=== PATIENT | female | born 2000 | race Caucasian/White ===

== ENCOUNTER 2021-04-13 12:44 | Emergency (ER) | payer OTHER ==
[2021-04-13 13:15] VITALS: RESP 18; TEMP 98.5
[2021-04-13 14:17] LABS: Appearance,Urine Cloudy (Clear); Bacteria,Urine Rare /hpf; Bilirubin,Urine Negative (Negative); Blood,Urine Large (Negative); Color,Urine Yellow; Glucose,Urine (UA) Negative (Negative); Ketones,Urine Negative (Negative); Leukocyte Esterase,Urine Large (Negative); Mucus,Urine Rare /hpf; Nitrite,Urine Negative (Negative); PH, Urine 6.5 (5.0-8.0); Protein,Urine Negative (Negative); RBC,Urine 58 /hpf (0-5); Specific Gravity,Urine 1.019 (1.001-1.035); Squamous Epithelial Cell,Urine 4 /hpf (0-4); Urobilinogen,Urine <2.0 mg/dL (<2.0); WBC,Urine 8 /hpf (0-5)
[2021-04-13] MEDS ORDERED: DEXAMETHASONE SOD PHOSPHATE 10 MG/ML 1 ML VIAL IM STA (14:32)
[2021-04-13] MEDS ORDERED: ONDANSETRON 4 MG/2 ML VIAL IVP STA (14:33)
[2021-04-13] MEDS ORDERED: SODIUM CHLORIDE 0.9% 1,000 ML IV STA (14:33)
[2021-04-13 15:06] LABS: Basophils % (A) 1 %; Eosinophils # (A) 0.1 k/uL (0-0.7); Eosinophils % (A) 1 %; HCT 44.2 % (34.0-46.0); Lymphocytes # (A) 1.5 k/uL (1.0-4.8); Lymphocytes % (A) 17 %; MCH 29.9 pg (25.0-35.0); Mean Platelet Volume 7.2; Monocytes # (A) 0.3 k/uL (0-1.0); Monocytes % (A) 3 %; Neutrophils # (A) 7.1 k/uL (1.3-7.7); Neutrophils % (A) 78 %; Platelet Count 220 k/uL (150-450); RBC 5.02 m/uL (3.80-5.40); RDW 13.3 % (11.5-15.5); WBC 9.1 k/uL (4.0-11.0)
[2021-04-13 15:20] LABS: ALT 48 U/L (4-34); AST 34 U/L (14-36); African American GFR (CKD) >90 (>60 ml/min/1.73 sqM); Albumin 4.7 g/dL (3.5-5.0); Alkaline Phosphatase 66 U/L (38-126); Amylase 44 U/L (30-110); Anion Gap 10 mmol/L; Blood Urea Nitrogen 7 mg/dL (7-17); Carbon Dioxide 24 mmol/L (22-30); Chloride 105 mmol/L (98-107); Glucose 86 mg/dL (74-99); Lipase 58 U/L (23-300); Non-African American GFR(CKD) >90 (>60 ml/min/1.73 sqM); Potassium 3.8 mmol/L (3.5-5.1); Sodium 139 mmol/L (137-145); Total Bilirubin 0.6 mg/dL (0.2-1.3); Total Protein 7.6 g/dL (6.3-8.2)
--- NOTE | 2021-04-13 15:23 | XR ---
EXAMINATION TYPE: XR KUB DATE OF EXAM: 04/13/2021 COMPARISON: NONE HISTORY: Abdominal pain TECHNIQUE: 2 views FINDINGS: Bowel gas pattern is normal. There is no sign of intestinal obstruction or pneumoperitoneum . Fecal pattern is normal. Lung bases are clear. IMPRESSION: Nonacute abdomen.
[2021-04-13] MEDS ORDERED: cefTRIAXone IN SWFI 1,000 MG/10 ML SYRINGE IVP STA (15:56)
--- NOTE | 2021-04-13 16:09 | CT ---
EXAMINATION TYPE: CT abdomen pelvis w con DATE OF EXAM: 04/13/2021 COMPARISON: None HISTORY: RLQ pain and vomiting CT DLP: 1331.7 mGycm Automated exposure control for dose reduction was used. CONTRAST: Performed with IV Contrast, patient injected with 100 mL of Isovue 300. Images obtained from the diaphragm to the floor the pelvis with IV contrast. Lung bases are clear. There is no pleural effusion. Heart size is normal. There is no pericardial eff usion. Liver spleen stomach pancreas gallbladder appear intact. The bile ducts are not dilated. There is no adrenal mass. Kidneys have normal size and contour. There is normal contrast opacificatio n of the kidneys. There is no hydronephrosis. There is no retroperitoneal adenopathy. Bladder distend s smoothly. There is no inguinal hernia. Uterus is anteverted. Lumbar vertebra have normal alignment. There is L5 spondylolysis without significant spondylolisthesis. There is no compression fracture. B kenny pelvis is intact. Hip joints are intact. There is no evidence of pelvic mass. Appendix is medial and appears normal. There is no mesenteric edema. There is no ascites or free air. There is no evidence of a bowel obstru ction. IMPRESSION: Negative CT scan abdomen and pelvis. Normal appendix.
--- NOTE | 2021-04-13 17:00 | ED ---
Nausea/Vomiting/Diarrhea HPI - General Source: patient, RN notes reviewed Mode of arrival: ambulatory Limitations: no limitations <Khai Garcia - Last Filed: 04/13/21 16:52> <Lidya Lobo - Last Filed: 04/18/21 01:43> - General Chief complaint: Nausea/Vomiting/Diarrhea Stated complaint: stomach pain, vomitting Time Seen by Provider: 04/13/21 14:24 - History of Present Illness Initial comments: Patient is a 20-year-old female that presents to the emergency department with nausea vomiting abdominal pain for the past several months. She notes this is been ongoing with over these. She denied any aggravating or alleviating factors at this time. She notes she does still have her gallbladder and appendix. She was otherwise well-appearing. She denied any . She denied chest pain shortness of breath headache diarrhea constipation fever fatigue chills. (Khai Garcia) - Related Data Home Medications Medication Instructions Recorded Confirmed Bismuth Subsalicylate 262 mg PO ONCE PRN 04/13/21 04/13/21 [Pepto-Bismol] Previous Rx's Medication Instructions Recorded Cephalexin [Keflex] 500 mg PO Q6HR #40 cap 04/13/21 Allergies Allergy/AdvReac Type Severity Reaction Status Date / Time No Known Allergies Allergy Verified 04/13/21 16:15 Review of Systems ROS Other: All systems not noted in ROS Statement are negative. <Khai Garcia - Last Filed: 04/13/21 16:52> ROS Other: All systems not noted in ROS Statement are negative. <Lidya Lobo - Last Filed: 04/18/21 01:43> ROS Statement: Those systems with pertinent positive or pertinent negative responses have been documented in the HPI. Past Medical History Past Medical History: No Reported History History of Any Multi-Drug Resistant Organisms: None Reported Past Surgical History: Bladder Surgery Additional Past Surgical History / Comment(s): bladder surgery as a kid Past Psychological History: Anxiety Smoking Status: Vaper Past Alcohol Use History: None Reported Past Drug Use History: Marijuana <Khai Garcia - Last Filed: 04/13/21 16:52> General Exam Limitations: no limitations General appearance: alert, in no apparent distress, obese Head exam: Present: atraumatic, normocephalic, normal inspection Eye exam: Present: normal appearance, PERRL, EOMI. Absent: scleral icterus, conjunctival injection, periorbital swelling ENT exam: Present: normal exam, mucous membranes moist Neck exam: Present: normal inspection Respiratory exam: Present: normal lung sounds bilaterally. Absent: respiratory distress, wheezes, rales, rhonchi, stridor Cardiovascular Exam: Present: regular rate, normal rhythm, normal heart sounds. Absent: systolic murmur, diastolic murmur, rubs, gallop, clicks GI/Abdominal exam: Present: soft, tenderness (Generalized throughout), normal bowel sounds. Absent: distended, guarding, rebound, rigid Extremities exam: Present: normal inspection, full ROM, normal capillary refill. Absent: tenderness, pedal edema, joint swelling, calf tenderness Neurological exam: Present: alert, oriented X3 Psychiatric exam: Present: normal affect, normal mood Skin exam: Present: warm, dry, intact, normal color. Absent: rash <Khai Garcia - Last Filed: 04/13/21 16:52> Course Vital Signs 04/13/21 04/13/21 04/13/21 13:10 15:24 17:13 Temperature 98.5 F 98.5 F Pulse Rate 77 63 69 Respiratory 18 18 18 Rate Blood Pressure 169/93 129/85 123/88 O2 Sat by Pulse 97 100 99 Oximetry Medical Decision Making - Lab Data Result diagrams: 04/13/21 14:44 04/13/21 14:44 <Khai Garcia - Last Filed: 04/13/21 16:52> - Lab Data Result diagrams: 04/13/21 14:44 04/13/21 14:44 <Lidya Lobo - Last Filed: 04/18/21 01:43> - Medical Decision Making 20 oh female complaining of nausea and vomiting with no pain for the past several months. Labs, KUB, 1 L normal saline, 4 g of Zofran ordered. Labs unremarkable. Urinalysis shows 11 white blood cells, 1 g Rocephin ordered. Antibiotics sent to pharmacy. KUB shows nonacute abdomen. Computed tomography scan ordered due to continuing discomfort. Computed tomography scan negative for any acute abdominal process. Results discussed with patient and she is, discharge. Primary care and GI specialist as needed. Case discussed with Dr. Lobo, patient discharge home. (Khai Garcia) I was available for consultation in the emergency department. The history and physical exam were done by the midlevel provider. I was consulted for this patients care. I reviewed the case with the midlevel provider and based on their presentation of the patient, I agree with the assessment, medical decision making and plan of care as documented. Chart was dictated using [email or web address] dictation software. Attempts were made to correct any dictation errors however some typographical errors may persist. (Lidya Lobo) - Lab Data Lab Results 04/13/21 04/13/21 04/13/21 Range/Units 13:41 13:41 14:44 WBC 9.1 (4.0-11.0) k/uL RBC 5.02 (3.80-5.40) m/uL Hgb 15.0 (11.4-16.0) gm/dL Hct 44.2 (34.0-46.0) % MCV 88.0 (80.0-100.0) fL MCH 29.9 (25.0-35.0) pg MCHC 34.0 (31.0-37.0) g/dL RDW 13.3 (11.5-15.5) % Plt Count 220 (150-450) k/uL MPV 7.2 Neutrophils % 78 % Lymphocytes % 17 % Monocytes % 3 % Eosinophils % 1 % Basophils % 1 % Neutrophils # 7.1 (1.3-7.7) k/uL Lymphocytes # 1.5 (1.0-4.8) k/uL Monocytes # 0.3 (0-1.0) k/uL Eosinophils # 0.1 (0-0.7) k/uL Basophils # 0.0 (0-0.2) k/uL Sodium (137-145) mmol/L Potassium (3.5-5.1) mmol/L Chloride (98-107) mmol/L Carbon Dioxide (22-30) mmol/L Anion Gap mmol/L BUN (7-17) mg/dL Creatinine (0.52-1.04) mg/dL Est GFR (CKD-EPI)AfAm (>60 ml/min/1.73 sqM) Est GFR (CKD-EPI)NonAf (>60 ml/min/1.73 sqM) Glucose (74-99) mg/dL Calcium (8.4-10.2) mg/dL Total Bilirubin (0.2-1.3) mg/dL AST (14-36) U/L ALT (4-34) U/L Alkaline Phosphatase (38-126) U/L Total Protein (6.3-8.2) g/dL Albumin (3.5-5.0) g/dL Amylase (30-110) U/L Lipase (23-300) U/L Urine Color Yellow Urine Appearance Cloudy H (Clear) Urine pH 6.5 (5.0-8.0) Ur Specific [place] 1.019 (1.001-1.035) Urine Protein Negative (Negative) Urine Glucose (UA) Negative (Negative) Urine Ketones Negative (Negative) Urine Blood Large H (Negative) Urine Nitrite Negative (Negative) Urine Bilirubin Negative (Negative) Urine Urobilinogen <2.0 (<2.0) mg/dL Ur Leukocyte Esterase Large H (Negative) Urine RBC 58 H (0-5) /hpf Urine WBC 8 H (0-5) /hpf Ur Squamous Epith Cells 4 (0-4) /hpf Urine Bacteria Rare H (None) /hpf Urine Mucus Rare H (None) /hpf Urine HCG, Qual Not Detected (Not Detectd) 04/13/21 Range/Units 14:44 WBC (4.0-11.0) k/uL RBC (3.80-5.40) m/uL Hgb (11.4-16.0) gm/dL Hct (34.0-46.0) % MCV (80.0-100.0) fL MCH (25.0-35.0) pg MCHC (31.0-37.0) g/dL RDW (11.5-15.5) % Plt Count (150-450) k/uL MPV Neutrophils % % Lymphocytes % % Monocytes % % Eosinophils % % Basophils % % Neutrophils # (1.3-7.7) k/uL Lymphocytes # (1.0-4.8) k/uL Monocytes # (0-1.0) k/uL Eosinophils # (0-0.7) k/uL Basophils # (0-0.2) k/uL Sodium 139 (137-145) mmol/L Potassium 3.8 (3.5-5.1) mmol/L Chloride 105 (98-107) mmol/L Carbon Dioxide 24 (22-30) mmol/L Anion Gap 10 mmol/L BUN 7 (7-17) mg/dL Creatinine 0.58 (0.52-1.04) mg/dL Est GFR (CKD-EPI)AfAm >90 (>60 ml/min/1.73 sqM) Est GFR (CKD-EPI)NonAf >90 (>60 ml/min/1.73 sqM) Glucose 86 (74-99) mg/dL Calcium 10.0 (8.4-10.2) mg/dL Total Bilirubin 0.6 (0.2-1.3) mg/dL AST 34 (14-36) U/L ALT 48 H (4-34) U/L Alkaline Phosphatase 66 (38-126) U/L Total Protein 7.6 (6.3-8.2) g/dL Albumin 4.7 (3.5-5.0) g/dL Amylase 44 (30-110) U/L Lipase 58 (23-300) U/L Urine Color Urine Appearance (Clear) Urine pH (5.0-8.0) Ur Specific [place] (1.001-1.035) Urine Protein (Negative) Urine Glucose (UA) (Negative) Urine Ketones (Negative) Urine Blood (Negative) Urine Nitrite (Negative) Urine Bilirubin (Negative) Urine Urobilinogen (<2.0) mg/dL Ur Leukocyte Esterase (Negative) Urine RBC (0-5) /hpf Urine WBC (0-5) /hpf Ur Squamous Epith Cells (0-4) /hpf Urine Bacteria (None) /hpf Urine Mucus (None) /hpf Urine HCG, Qual (Not Detectd) Disposition Is patient prescribed a controlled substance at d/c from ED?: No Time of Disposition: 16:59 <Khai Garcia - Last Filed: 04/13/21 16:52> <Lidya Lobo - Last Filed: 04/18/21 01:43> Clinical Impression: Abdominal pain, Urinary tract infection Disposition: HOME SELF-CARE Condition: Stable Instructions (If sedation given, give patient instructions): Abdominal Pain (ED) Additional Instructions: Please return to the Emergency Department if symptoms worsen or any other concerns. Follow-up with primary care 1-2 days. Take antibiotics as prescribed. Prescriptions: Cephalexin [Keflex] 500 mg PO Q6HR #40 cap Referrals: None,Stated [Primary Care Provider] - 1-2 days Lesvia Ford MD [STAFF PHYSICIAN] - 1-2 days
[2021-04-13 17:14] VITALS: BP 123/88; PULSE 69
== END 2021-04-13 17:14 | disposition home or self-care (01) ==
LOC: EC 12:44
DX: N39.0 Urinary tract infection, site not specified (principal); F41.9 Anxiety disorder, unspecified; F17.290 Nicotine dependence, other tobacco product, uncomplicated; F12.90 Cannabis use, unspecified, uncomplicated
CPT/HCPCS: 99284; 96374; 96375; 36415; 80053; 82150; 83690; 85025; 81001; 81025; 74018; 74177; J2405; J0696; Q9967

== ENCOUNTER 2023-01-13 17:29 | Emergency (ER) | payer OTHER ==
[2023-01-13] MEDS ORDERED: SODIUM CHLORIDE 0.9% 500 ML 500 ML IV STA (17:54)
[2023-01-13] MEDS ORDERED: LORazepam 1 MG TAB PO STA (17:54)
--- NOTE | 2023-01-13 17:58 | ED ---
General Adult HPI - General Chief complaint: Dizziness Stated complaint: Near-syncope Time Seen by Provider: 01/13/23 17:46 Source: patient, family, RN notes reviewed Mode of arrival: ambulatory Limitations: no limitations - History of Present Illness Initial comments: Patient is a pleasant 22-year-old female presenting to the emergency department for near syncopal episode. Patient has not been feeling great all day. Patient does admit to drinking a monster energy drink today which she has not had any long time. Patient was at work and felt lightheaded. Patient did not pass out. Patient states symptoms have improved and near resolved. Patient questions if she is feeling anxious. Patient states she does have a history of chronic anxiety. - Related Data Home Medications Medication Instructions Recorded Confirmed No Known Home Medications 01/13/23 01/13/23 Allergies Allergy/AdvReac Type Severity Reaction Status Date / Time No Known Allergies Allergy Verified 04/13/21 16:15 Review of Systems ROS Statement: Those systems with pertinent positive or pertinent negative responses have been documented in the HPI. ROS Other: All systems not noted in ROS Statement are negative. Constitutional: Denies: fever Eyes: Denies: eye pain ENT: Denies: ear pain Respiratory: Reports: dyspnea (Patient does feel a little bit short of breath however believes this is from her anxiety as she has had this previously also with her anxiety) Cardiovascular: Denies: chest pain Gastrointestinal: Denies: abdominal pain Genitourinary: Denies: dysuria Past Medical History Past Medical History: No Reported History History of Any Multi-Drug Resistant Organisms: None Reported Past Surgical History: Bladder Surgery Additional Past Surgical History / Comment(s): bladder surgery as a kid Past Psychological History: Anxiety Smoking Status: Vaper Past Alcohol Use History: None Reported Past Drug Use History: Marijuana General Exam Limitations: no limitations General appearance: alert, in no apparent distress Head exam: Present: normocephalic Eye exam: Present: normal appearance, PERRL, EOMI ENT exam: Present: normal oropharynx Neck exam: Present: normal inspection Respiratory exam: Present: normal lung sounds bilaterally Cardiovascular Exam: Present: regular rate, normal rhythm Expanded Peripheral pulses: 2+: Radial (R), Radial (L), Posterior Tibialis (R), Posterior Tibialis (L) GI/Abdominal exam: Present: soft. Absent: tenderness Extremities exam: Present: normal inspection. Absent: pedal edema, calf tenderness Neurological exam: Present: alert, oriented X3, CN II-XII intact. Absent: motor sensory deficit Expanded Neurological exam: Present: protecting the airway Speech: Present: fluid speech Cranial nerves: EOM's Intact: Normal Motor strength exam: RUE: 5, LUE: 5, RLE: 5, LLE: 5 Eye Response: (4) open spontaneously Motor Response: (6) obeys commands Verbal Response: (5) oriented Psychiatric exam: Present: normal affect, normal mood Skin exam: Present: normal color Course Vital Signs 01/13/23 01/13/23 01/13/23 17:30 18:30 19:00 Temperature 98 F Pulse Rate 80 84 84 Respiratory 20 18 18 Rate Blood Pressure 151/90 115/75 110/76 O2 Sat by Pulse 99 100 100 Oximetry 01/13/23 20:07 Temperature 98.2 F Pulse Rate 80 Respiratory 20 Rate Blood Pressure 124/75 O2 Sat by Pulse 100 Oximetry EKG Findings - EKG Results: EKG: interpreted by ERMD, sinus rhythm, normal axis, normal QRS, normal ST/T Medical Decision Making - Medical Decision Making Was pt. sent in by a medical professional or institution (, [facility], CYBER INCIDENT ANALYST, urgent ca re, hospital, or fci...) When possible be specific @ -No Did you speak to anyone other than the patient for history (EMS, parent, family, police, friend...)? What history was obtained from this source @ -No Did you review nursing and triage notes (agree or disagree)? Why? @ -I reviewed and agree with nursing and triage notes Were old charts reviewed (outside hosp., previous admission, EMS record, old EKG, old radiological studies, urgent care reports/EKG's, fci records)? Report findings @ -No old charts were reviewed Differential Diagnosis (chest pain, altered mental status, abdominal pain women, abdominal pain men, vaginal bleeding, weakness, fever, dyspnea, syncope, headache, dizziness, GI bleed, back pain, seizure, CVA, palpatations, mental health, musculoskeletal)? @ -Differential Syncope: Valvular disease, hypertrophic cardiomyopathy, pulmonary embolism, tamponade, tachycardia, bradycardia, NC, hypovolemia, hemorrhage, dissection, anemia, intracranial hemorrhage, seizure, hypoglycemia, carbon monoxide poisoning, this is not meant to be an all-inclusive list. EKG interpreted by me (3pts min.). @ -As above X-rays interpreted by me (1pt min.). @ -None done CT interpreted by me (1pt min.). @ -None done U/S interpreted by me (1pt. min.). @ -Report reviewed What testing was considered but not performed or refused? (CT, X-rays, U/S, labs)? Why? @ -Originally ordered chest x-ray however this was canceled secondary to and low likelihood of abnormality. What meds were considered but not given or refused? Why? @ -None Did you discuss the management of the patient with other professionals (professionals i.e. Dr., PA, CYBER INCIDENT ANALYST, lab, RT, psych nurse, social media campaign manager, conveyor line bakery worker, teacher, agricultural technical officer, director case management)? Give summary @ -No Was smoking cessation discussed for >3mins.? @ -No Was critical care preformed (if so, how long)? @ -No Were there social determinants of health that impacted care today? How? (Homelessness, low income, unemployed, alcoholism, drug addiction, transportation, low edu. Level, literacy, decrease access to med. care, retirement, rehab)? @ -No Was there de-escalation of care discussed even if they declined (Discuss DNR or withdrawal of care, Hospice)? DNR status @ -No What co-morbidities impacted this encounter? (DM, HTN, Smoking, COPD, CAD, Cancer, CVA, ARF, Chemo, Hep., AIDS, mental health diagnosis, sleep apnea, m orbid obesity)? @ -None Was patient admitted / discharged? Hospital course, mention meds given and route, prescriptions, significant lab abnormalities, going to OR and other pertinent info. @ -Is reevaluated and resting comfortably in bed, symptom free at this time. Patient updated. Patient did have near-syncopal episode. Patient has ult rasound showing sac. Patient is advised close follow-up with CHAIRMAN & CEO and repeat blood testing. Patient made aware that ectopic has not 100% ruled out at this time. Undiagnosed new problem with uncertain prognosis? @ -No Drug Therapy requiring intensive monitoring for toxicity (Heparin, Nitro, Insulin, Cardizem)? @ -No Were any procedures done? @ -No Diagnosis/symptom? @ -near syncopal, Acute, or Chronic, or Acute on Chronic? @ -Acute, acute Uncomplicated (without systemic symptoms) or Complicated (systemic symptoms)? @ -default Side effects of treatment? @ -No Exacerbation, Progression, or Severe Exacerbation? @ -No Poses a threat to life or bodily function? How? (Chest pain, USA, NC, pneumonia, PE, COPD, DKA, ARF, appy, cholecystitis, CVA, Diverticulitis, Homicidal, Suicidal, threat to staff... and all critical care pts) @ -No - Lab Data Result diagrams: 01/13/23 18:16 01/13/23 18:16 Lab Results 01/13/23 01/13/23 01/13/23 Range/Units 18:16 18:16 18:16 WBC 8.6 (3.8-10.6) k/uL RBC 4.58 (3.80-5.40) m/uL Hgb 13.4 (11.4-16.0) gm/dL Hct 40.5 (34.0-46.0) % MCV 88.5 (80.0-100.0) fL MCH 29.3 (25.0-35.0) pg MCHC 33.1 (31.0-37.0) g/dL RDW 13.6 (11.5-15.5) % Plt Count 167 (150-450) k/uL MPV 7.6 Neutrophils % 75 % Lymphocytes % 18 % Monocytes % 5 % Eosinophils % 1 % Basophils % 0 % Neutrophils # 6.5 (1.3-7.7) k/uL Lymphocytes # 1.6 (1.0-4.8) k/uL Monocytes # 0.4 (0-1.0) k/uL Eosinophils # 0.0 (0-0.7) k/uL Basophils # 0.0 (0-0.2) k/uL D-Dimer (<0.60) mg/L FEU Sodium (137-145) mmol/L Potassium (3.5-5.1) mmol/L Chloride (98-107) mmol/L Carbon Dioxide (22-30) mmol/L Anion Gap mmol/L BUN (7-17) mg/dL Creatinine (0.52-1.04) mg/dL Est GFR (CKD-EPI)AfAm (>60 ml/min/1.73 sqM) Est GFR (CKD-EPI)NonAf (>60 ml/min/1.73 sqM) Glucose (74-99) mg/dL Calcium (8.4-10.2) mg/dL Total Bilirubin (0.2-1.3) mg/dL AST (14-36) U/L ALT (4-34) U/L Alkaline Phosphatase (38-126) U/L Troponin I (0.000-0.034) ng/mL Total Protein (6.3-8.2) g/dL Albumin (3.5-5.0) g/dL HCG, Quant mIU/mL Urine Color Colorless Urine Appearance Clear (Clear) Urine pH 6.0 (5.0-8.0) Ur Specific [place] 1.004 (1.001-1.035) Urine Protein Negative (Negative) Urine Glucose (UA) Negative (Negative) Urine Ketones Negative (Negative) Urine Blood Negative (Negative) Urine Nitrite Negative (Negative) Urine Bilirubin Negative (Negative) Urine Urobilinogen <2.0 (<2.0) mg/dL Ur Leukocyte Esterase Large H (Negative) Urine RBC 3 (0-5) /hpf Urine WBC 12 H (0-5) /hpf Ur Squamous Epith Cells 4 (0-4) /hpf Urine Bacteria Occasional H (None) /hpf Urine HCG, Qual Detected (Not Detectd) 01/13/23 01/13/23 01/13/23 Range/Units 18:16 18:16 18:16 WBC (3.8-10.6) k/uL RBC (3.80-5.40) m/uL Hgb (11.4-16.0) gm/dL Hct (34.0-46.0) % MCV (80.0-100.0) fL MCH (25.0-35.0) pg MCHC (31.0-37.0) g/dL RDW (11.5-15.5) % Plt Count (150-450) k/uL MPV Neutrophils % % Lymphocytes % % Monocytes % % Eosinophils % % Basophils % % Neutrophils # (1.3-7.7) k/uL Lymphocytes # (1.0-4.8) k/uL Monocytes # (0-1.0) k/uL Eosinophils # (0-0.7) k/uL Basophils # (0-0.2) k/uL D-Dimer 0.23 (<0.60) mg/L FEU Sodium 138 (137-145) mmol/L Potassium 3.4 L (3.5-5.1) mmol/L Chloride 104 (98-107) mmol/L Carbon Dioxide 24 (22-30) mmol/L Anion Gap 10 mmol/L BUN 9 (7-17) mg/dL Creatinine 0.50 L (0.52-1.04) mg/dL Est GFR (CKD-EPI)AfAm >90 (>60 ml/min/1.73 sqM) Est GFR (CKD-EPI)NonAf >90 (>60 ml/min/1.73 sqM) Glucose 71 L (74-99) mg/dL Calcium 9.2 (8.4-10.2) mg/dL Total Bilirubin 0.5 (0.2-1.3) mg/dL AST 22 (14-36) U/L ALT 18 (4-34) U/L Alkaline Phosphatase 42 (38-126) U/L Troponin I <0.012 (0.000-0.034) ng/mL Total Protein 7.3 (6.3-8.2) g/dL Albumin 4.6 (3.5-5.0) g/dL HCG, Quant mIU/mL Urine Color Urine Appearance (Clear) Urine pH (5.0-8.0) Ur Specific [place] (1.001-1.035) Urine Protein (Negative) Urine Glucose (UA) (Negative) Urine Ketones (Negative) Urine Blood (Negative) Urine Nitrite (Negative) Urine Bilirubin (Negative) Urine Urobilinogen (<2.0) mg/dL Ur Leukocyte Esterase (Negative) Urine RBC (0-5) /hpf Urine WBC (0-5) /hpf Ur Squamous Epith Cells (0-4) /hpf Urine Bacteria (None) /hpf Urine HCG, Qual (Not Detectd) 01/13/23 Range/Units 18:16 WBC (3.8-10.6) k/uL RBC (3.80-5.40) m/uL Hgb (11.4-16.0) gm/dL Hct (34.0-46.0) % MCV (80.0-100.0) fL MCH (25.0-35.0) pg MCHC (31.0-37.0) g/dL RDW (11.5-15.5) % Plt Count (150-450) k/uL MPV Neutrophils % % Lymphocytes % % Monocytes % % Eosinophils % % Basophils % % Neutrophils # (1.3-7.7) k/uL Lymphocytes # (1.0-4.8) k/uL Monocytes # (0-1.0) k/uL Eosinophils # (0-0.7) k/uL Basophils # (0-0.2) k/uL D-Dimer (<0.60) mg/L FEU Sodium (137-145) mmol/L Potassium (3.5-5.1) mmol/L Chloride (98-107) mmol/L Carbon Dioxide (22-30) mmol/L Anion Gap mmol/L BUN (7-17) mg/dL Creatinine (0.52-1.04) mg/dL Est GFR (CKD-EPI)AfAm (>60 ml/min/1.73 sqM) Est GFR (CKD-EPI)NonAf (>60 ml/min/1.73 sqM) Glucose (74-99) mg/dL Calcium (8.4-10.2) mg/dL Total Bilirubin (0.2-1.3) mg/dL AST (14-36) U/L ALT (4-34) U/L Alkaline Phosphatase (38-126) U/L Troponin I (0.000-0.034) ng/mL Total Protein (6.3-8.2) g/dL Albumin (3.5-5.0) g/dL HCG, Quant 7274.6 mIU/mL Urine Color Urine Appearance (Clear) Urine pH (5.0-8.0) Ur Specific [place] (1.001-1.035) Urine Protein (Negative) Urine Glucose (UA) (Negative) Urine Ketones (Negative) Urine Blood (Negative) Urine Nitrite (Negative) Urine Bilirubin (Negative) Urine Urobilinogen (<2.0) mg/dL Ur Leukocyte Esterase (Negative) Urine RBC (0-5) /hpf Urine WBC (0-5) /hpf Ur Squamous Epith Cells (0-4) /hpf Urine Bacteria (None) /hpf Urine HCG, Qual (Not Detectd) Disposition Clinical Impression: Near syncope, Disposition: HOME SELF-CARE Condition: Stable Instructions (If sedation given, give patient instructions): Dizziness (ED), (ED) Additional Instructions: Repeat blood work in 2 days, prescription provided. Please do follow-up with your primary care physician in the next day or 2 for recheck. Please do follow- up with CHAIRMAN [facility] CEO in the next day or 2 for recheck, number provided. Return for passing out, pelvic pain, bleeding, worsening symptoms or any other concerns. Is patient prescribed a controlled substance at d/c from ED?: No Referrals: Gail Covington DO [Doctor of Osteopathic Medicine] - 1-2 days Jeffy Zheng MD [REFERRING] - 1-2 days Time of Disposition: 20:45
[2023-01-13 18:55] LABS: ALT 18 U/L (4-34); AST 22 U/L (14-36); African American GFR (CKD) >90 (>60 ml/min/1.73 sqM); Albumin 4.6 g/dL (3.5-5.0); Alkaline Phosphatase 42 U/L (38-126); Anion Gap 10 mmol/L; Blood Urea Nitrogen 9 mg/dL (7-17); Calcium 9.2 mg/dL (8.4-10.2); Carbon Dioxide 24 mmol/L (22-30); Chloride 104 mmol/L (98-107); Glucose 71 mg/dL (74-99); Non-African American GFR(CKD) >90 (>60 ml/min/1.73 sqM); Potassium 3.4 mmol/L (3.5-5.1); Sodium 138 mmol/L (137-145); Total Bilirubin 0.5 mg/dL (0.2-1.3); Total Protein 7.3 g/dL (6.3-8.2)
[2023-01-13 18:56] LABS: Appearance,Urine Clear (Clear); Bacteria,Urine Occasional /hpf; Bilirubin,Urine Negative (Negative); Blood,Urine Negative (Negative); Color,Urine Colorless; Glucose,Urine (UA) Negative (Negative); Ketones,Urine Negative (Negative); Leukocyte Esterase,Urine Large (Negative); Nitrite,Urine Negative (Negative); Protein,Urine Negative (Negative); RBC,Urine 3 /hpf (0-5); Specific Gravity,Urine 1.004 (1.001-1.035); Squamous Epithelial Cell,Urine 4 /hpf (0-4); Urobilinogen,Urine <2.0 mg/dL (<2.0); WBC,Urine 12 /hpf (0-5)
[2023-01-13 19:04] LABS: Basophils % (A) 0 %; Eosinophils % (A) 1 %; HCT 40.5 % (34.0-46.0); HGB 13.4 gm/dL (11.4-16.0); Lymphocytes # (A) 1.6 k/uL (1.0-4.8); Lymphocytes % (A) 18 %; MCH 29.3 pg (25.0-35.0); MCHC 33.1 g/dL (31.0-37.0); MCV 88.5 fL (80.0-100.0); Mean Platelet Volume 7.6; Monocytes # (A) 0.4 k/uL (0-1.0); Monocytes % (A) 5 %; Neutrophils # (A) 6.5 k/uL (1.3-7.7); Neutrophils % (A) 75 %; Platelet Count 167 k/uL (150-450); RBC 4.58 m/uL (3.80-5.40); RDW 13.6 % (11.5-15.5); WBC 8.6 k/uL (3.8-10.6)
[2023-01-13 20:10] VITALS: BP 124/75; PULSE 80; RESP 20; TEMP 98.2
--- NOTE | 2023-01-13 20:33 | US ---
EXAMINATION TYPE: Transabdominal DATE OF EXAM: 01/13/2023 8:19 PM COMPARISON: NONE CLINICAL INDICATION: Female, 22 years old with history of ; Pt did not know she was pg. LMP 12/08/22 EXAM PERFORMED: Transabdominal (TA) EXAM MEASUREMENTS: GESTATIONAL AGE / DATING Physician Established: Not yet established Dates by LMP: 12/08/22 (5 weeks/1 days) EDC: 09/14/23 Dates by First Scan: No previous this is first scan Dates by Current Scan for: Unable to date by today's study MATERNAL ANATOMY Uterus: 8.2 x 5.8 x 4.0cm Right Ovary: 2.5 x 2.7 x 2.2cm Left Ovary: 3.8 x 1.9 x 1.7cm Post CDS / Adnexa: wnl Presence of free fluid: No Presence of corpus luteal cyst: Not seen Presence of subchorionic bleed: No GESTATION / SURVEY CRL: Not seen MSD: 0.76cm OOR) Yolk Sac (normal less than 6mm): Not seen Date of LMP: 12/08/22 Beta HcG (if available): 7274.6 IMPRESSION: Intrauterine gestational sac without pole may reflect normal early IUP. No spontaneous , blighted oval as well as ectopic is not excluded. Correlate clinically with serial beta h CG and/or ultrasound.
== END 2023-01-13 21:00 | disposition home or self-care (01) ==
LOC: EC 17:29
DX: O26.899 Other specified pregnancy related conditions, unspecified trimester (principal); R55 Syncope and collapse; O99.330 Smoking (tobacco) complicating pregnancy, unspecified trimester; F17.290 Nicotine dependence, other tobacco product, uncomplicated; O99.320 Drug use complicating pregnancy, unspecified trimester; F12.90 Cannabis use, unspecified, uncomplicated; Z3A.00 Weeks of gestation of pregnancy not specified
CPT/HCPCS: 36415; 76801; 80053; 81001; 81025; 84484; 84702; 85025; 85379; 93005; 99284

== ENCOUNTER → 2023-01-15 | Outpatient (CLI) | payer OTHER | END | disposition home or self-care (01) | LOC: LABWHC1 13:52 | PROVIDERS: ATTEND Emergency Medicine | DX: Z32.00 Encounter for pregnancy test, result unknown (principal) | CPT/HCPCS: 36415; 84703 ==

== ENCOUNTER 2023-01-23 15:16 | Emergency (ER) | payer OTHER ==
[2023-01-23] MEDS ORDERED: SODIUM CHLORIDE 0.9% 1,000 ML IV STA (16:05)
[2023-01-23] MEDS ORDERED: ACETAMINOPHEN TAB 500 MG TAB PO STA (16:06)
[2023-01-23] MEDS ORDERED: PROMETHAZINE 25 MG TAB PO STA (16:07)
--- NOTE | 2023-01-23 16:09 | ED ---
General Adult HPI - General Chief complaint: Nausea/Vomiting/Diarrhea Stated complaint: N/V 6wks Time Seen by Provider: 01/23/23 15:55 Source: patient Mode of arrival: ambulatory Limitations: no limitations - History of Present Illness Initial comments: 22-year-old A0 female presents to ED with a chief complaint of abdominal pain. Patient states for the past 2-3 weeks has had ongoing abdominal pain, nausea, vomiting. Denies any changes in abdominal pain and notes that pain is just ongoing however notes that she has been increasingly more nauseous over the past few days. Does not have an OB. Denies vaginal bleeding. Denies chest pain or shortness of breath. No other complaints. - Related Data Previous Rx's Medication Instructions Recorded Cephalexin [Keflex] 500 mg PO Q6HR 5 Days #20 cap 01/23/23 Doxylamine Succinate/Vit B6 1 tab PO DIRECTED #40 tab 01/23/23 [D[address] Dr 10-10 mg Tablet] Allergies Allergy/AdvReac Type Severity Reaction Status Date / Time No Known Allergies Allergy Verified 01/23/23 15:45 Review of Systems ROS Statement: Those systems with pertinent positive or pertinent negative responses have been documented in the HPI. ROS Other: All systems not noted in ROS Statement are negative. Past Medical History Past Medical History: No Reported History History of Any Multi-Drug Resistant Organisms: None Reported Past Surgical History: Bladder Surgery Additional Past Surgical History / Comment(s): bladder surgery as a kid Past Psychological History: Anxiety Smoking Status: Vaper Past Alcohol Use History: None Reported Past Drug Use History: Marijuana General Exam Limitations: no limitations General appearance: alert, in no apparent distress Respiratory exam: Present: normal lung sounds bilaterally Cardiovascular Exam: Present: regular rate, normal rhythm GI/Abdominal exam: Present: soft (Diffuse tenderness to palpation. No rebound guarding or rigidity.), normal bowel sounds Back exam: Present: normal inspection Neurological exam: Present: alert, oriented X3 Psychiatric exam: Present: normal affect, normal mood Skin exam: Present: warm, dry Course Vital Signs 01/23/23 01/23/23 15:42 17:03 Temperature 98.5 F Pulse Rate 84 60 Respiratory 16 18 Rate Blood Pressure 112/79 121/69 O2 Sat by Pulse 96 100 Oximetry Medical Decision Making - Medical Decision Making Was pt. sent in by a medical professional or institution (Dr., PA, FREEZER MACHINE OPERATOR, urgent care, hospital, or long-term...) When possible be specific @ -No Did you speak to anyone other than the patient for history (EMS, parent, family, police, friend...)? What history was obtained from this source @ -No Did you review nursing and triage notes (agree or disagree)? Why? @ -I reviewed and agree with nursing and triage notes Were old charts reviewed (outside hosp., previous admission, EMS record, old EKG, old radiological studies, urgent care reports/EKG's, long-term records)? Report findings @ -No old charts were reviewed Differential Diagnosis (chest pain, altered mental status, abdominal pain women, abdominal pain men, vaginal bleeding, weakness, fever, dyspnea, syncope, headache, dizziness, GI bleed, back pain, seizure, CVA, palpatations, mental health, musculoskeletal)? @ -Differential Abdominal Pain Women: Appendicitis, Cholecystitis, diverticulosis, ischemic bowel, pancreatitis, hepatitis, UTI, gastroenteritis, AAA, incarcerated hernia, bowel obstruction, constipation, inflammatory bowel, hepatitis, peptic ulcer disease, splenic infarction, perforated viscus, vulvitis, ovarian torsion, PID, kidney stone, placenta abruption, this is not meant to be an all-inclusive list EKG interpreted by me (3pts min.). @ -None X-rays interpreted by me (1pt min.). @ -None done CT interpreted by me (1pt min.). @ -None done U/S interpreted by me (1pt. min.). @ -Transvaginal ultrasound confirmed IUP estimated 6 weeks 1 day. No acute findings. What testing was considered but not performed or refused? (CT, X-rays, U/S, labs)? Why? @ -None What meds were considered but not given or refused? Why? @ -None Did you discuss the management of the patient with other professionals (professionals i.e. MATEO Xiao, FREEZER MACHINE OPERATOR, lab, RT, psych nurse, social work assistant, try on baster, teacher, amphibious operations officer, director case)? Give summary @ -No Was smoking cessation discussed for >3mins.? @ -No Was critical care preformed (if so, how long)? @ -No Were there social determinants of health that impacted care today? How? (Homelessness, low income, unemployed, alcoholism, drug addiction, transportation, low edu. Level, literacy, decrease access to med. care, halfway, rehab)? @ -No Was there de-escalation of care discussed even if they declined (Discuss DNR or withdrawal of care, Hospice)? DNR status @ -No What co-morbidities impacted this encounter? (DM, HTN, Smoking, COPD, CAD, Cancer, CVA, ARF, Chemo, Hep., AIDS, mental health diagnosis, sleep apnea, morbid obesity)? @ -None Was patient admitted / discharged? Hospital course, mention meds given and route, prescriptions, significant lab abnormalities, going to OR and other pertinent info. @ -Discharge. Laboratory studies show elevated white count at 11.2. Urine shows bacteria however only 3 white blood cells, negative nitrites, positive leukocyte esterase. Transvaginal ultrasound confirmed IUP without acute findings. At this time, patient had improvement of pain and nausea with Tylenol and promethazine. Patient will be prescribed prescription for antibiotics due to asymptomatic bacteriuria and diclegis for nausea. Provided referral for ELECTRICAL ENGINEERING TEACHER. Discharged home in stable condition. Discussed return precautions with patient who verbalizes agreement. Undiagnosed new problem with uncertain prognosis? @ -No Drug Therapy requiring intensive monitoring for toxicity (Heparin, Nitro, Insulin, Cardizem)? @ -No Were any procedures done? @ -No Diagnosis/symptom? @ -, abdominal pain, hyperemesis gravidarum Acute, or Chronic, or Acute on Chronic? @ -Acute On chronic Uncomplicated (without systemic symptoms) or Complicated (systemic symptoms)? @ -Uncomplicated Side effects of treatment? @ -No Exacerbation, Progression, or Severe Exacerbation? @ -No Poses a threat to life or bodily function? How? (Chest pain, [place], PR, pneumonia, PE, COPD, DKA, ARF, appy, cholecystitis, CVA, Diverticulitis, Homicidal, Suicidal, threat to staff... and all critical care pts) @ -No - Lab Data Result diagrams: 01/23/23 17:03 01/23/23 17:03 Lab Results 01/23/23 01/23/23 01/23/23 Range/Units 17:03 17:03 17:03 WBC 11.2 H (3.8-10.6) k/uL RBC 4.79 (3.80-5.40) m/uL Hgb 14.2 (11.4-16.0) gm/dL Hct 41.7 (34.0-46.0) % MCV 87.2 (80.0-100.0) fL MCH 29.6 (25.0-35.0) pg MCHC 34.0 (31.0-37.0) g/dL RDW 13.6 (11.5-15.5) % Plt Count 221 (150-450) k/uL MPV 7.2 Neutrophils % 84 % Lymphocytes % 11 % Monocytes % 4 % Eosinophils % 0 % Basophils % 0 % Neutrophils # 9.5 H (1.3-7.7) k/uL Lymphocytes # 1.3 (1.0-4.8) k/uL Monocytes # 0.4 (0-1.0) k/uL Eosinophils # 0.0 (0-0.7) k/uL Basophils # 0.0 (0-0.2) k/uL Sodium 135 L (137-145) mmol/L Potassium 4.2 (3.5-5.1) mmol/L Chloride 101 (98-107) mmol/L Carbon Dioxide 24 (22-30) mmol/L Anion Gap 10 mmol/L BUN 6 L (7-17) mg/dL Creatinine 0.45 L (0.52-1.04) mg/dL Est GFR (CKD-EPI)AfAm >90 (>60 ml/min/1.73 sqM) Est GFR (CKD-EPI)NonAf >90 (>60 ml/min/1.73 sqM) Glucose 84 (74-99) mg/dL Calcium 9.6 (8.4-10.2) mg/dL Total Bilirubin 0.9 (0.2-1.3) mg/dL AST 25 (14-36) U/L ALT 20 (4-34) U/L Alkaline Phosphatase 50 (38-126) U/L Total Protein 7.4 (6.3-8.2) g/dL Albumin 4.7 (3.5-5.0) g/dL Amylase 44 (30-110) U/L Lipase 84 (23-300) U/L Urine Color Yellow Urine Appearance Clear (Clear) Urine pH 6.5 (5.0-8.0) Ur Specific [place] 1.027 (1.001-1.035) Urine Protein Trace H (Negative) Urine Glucose (UA) Negative (Negative) Urine Ketones 3+ H (Negative) Urine Blood Negative (Negative) Urine Nitrite Negative (Negative) Urine Bilirubin Negative (Negative) Urine Urobilinogen 2.0 (<2.0) mg/dL Ur Leukocyte Esterase Large H (Negative) Urine RBC <1 (0-5) /hpf Urine WBC 3 (0-5) /hpf Ur Squamous Epith Cells 3 (0-4) /hpf Urine Bacteria Rare H (None) /hpf Urine Mucus Many H (None) /hpf Disposition Clinical Impression: , Hyperemesis gravidarum, Abdominal pain Disposition: HOME SELF-CARE Condition: Poor Instructions (If sedation given, give patient instructions): Abdominal Pain in (ED), Nausea and Vomiting in (ED) Additional Instructions: Please return to the Emergency Department if symptoms worsen or any other concerns. Follow up with OB/[facility]. Prescriptions: Doxylamine Succinate/Vit B6 [Diclegis Dr 10-10 mg Tablet] 1 tab PO DIRECTED #40 tab Cephalexin [Keflex] 500 mg PO Q6HR 5 Days #20 cap Is patient prescribed a controlled substance at d/c from ED?: No Referrals: Jeffy Zheng MD [REFERRING] - 1-2 days Lauren Berman DO [Doctor of Osteopathic Medicine] - 1-2 days Time of Disposition: 18:21
[2023-01-23 17:05] VITALS: RESP 18
[2023-01-23 17:28] LABS: Basophils % (A) 0 %; Eosinophils % (A) 0 %; HCT 41.7 % (34.0-46.0); HGB 14.2 gm/dL (11.4-16.0); Lymphocytes # (A) 1.3 k/uL (1.0-4.8); Lymphocytes % (A) 11 %; MCH 29.6 pg (25.0-35.0); MCV 87.2 fL (80.0-100.0); Mean Platelet Volume 7.2; Monocytes # (A) 0.4 k/uL (0-1.0); Monocytes % (A) 4 %; Neutrophils # (A) 9.5 k/uL (1.3-7.7); Neutrophils % (A) 84 %; Platelet Count 221 k/uL (150-450); RBC 4.79 m/uL (3.80-5.40); RDW 13.6 % (11.5-15.5); WBC 11.2 k/uL (3.8-10.6)
[2023-01-23 17:42] LABS: Appearance,Urine Clear (Clear); Bacteria,Urine Rare /hpf; Bilirubin,Urine Negative (Negative); Blood,Urine Negative (Negative); Color,Urine Yellow; Glucose,Urine (UA) Negative (Negative); Ketones,Urine 3+ (Negative); Leukocyte Esterase,Urine Large (Negative); Mucus,Urine Many /hpf; Nitrite,Urine Negative (Negative); PH, Urine 6.5 (5.0-8.0); Protein,Urine Trace (Negative); RBC,Urine <1 /hpf (0-5); Specific Gravity,Urine 1.027 (1.001-1.035); Squamous Epithelial Cell,Urine 3 /hpf (0-4); WBC,Urine 3 /hpf (0-5)
--- NOTE | 2023-01-23 17:42 | US ---
EXAMINATION TYPE: Transabdominal DATE OF EXAM: 01/23/2023 5:25 PM COMPARISON: Ultrasound 01/13/2023 CLINICAL INDICATION: Female, 22 years old with history of 6 weeks , abd pain; hyperemesis, mi ld umbilical pain, no bleeding, G1 EXAM PERFORMED: [facility]TA EXAM MEASUREMENTS: GESTATIONAL AGE / DATING Physician Established: Not yet established Dates by LMP: (5 weeks/5 days) EDC: 09/14/2023 Dates by First Scan: (5 weeks/5 days) EDC: 09/14/2023 Dates by Current Scan for: (6 weeks/1 days) EDC: 09/17/2023 MATERNAL ANATOMY Uterus: 12.7 x 6.4 x 5.2cm Right Ovary: 3.0 x 2.9 x 3.4cm Left Ovary: not seen due to enlarging UT and bowel gas Post CDS / Adnexa: wnl Presence of free fluid: no Presence of corpus luteal cyst: yes, right ovary = 2.8 x 1.9 x 2.4cm Presence of subchorionic bleed: no GESTATION / SURVEY CRL: 0.4cm (6 weeks/1 days) MSD: wnl Yolk Sac (normal less than 6mm): 0.3cm Heart Rate: 115 bpm Rhythm: Normal IUP: Viable IUP Date of LMP: 12/08/2022 Beta HcG (if available): pending Single live intrauterine gestation. IMPRESSION: Single live intrauterine gestation with estimated gestational age of 6 weeks 1 day and estimated due date of 09/17/2023.
[2023-01-23 18:05] LABS: ALT 20 U/L (4-34); AST 25 U/L (14-36); African American GFR (CKD) >90 (>60 ml/min/1.73 sqM); Albumin 4.7 g/dL (3.5-5.0); Alkaline Phosphatase 50 U/L (38-126); Amylase 44 U/L (30-110); Anion Gap 10 mmol/L; Blood Urea Nitrogen 6 mg/dL (7-17); Calcium 9.6 mg/dL (8.4-10.2); Carbon Dioxide 24 mmol/L (22-30); Chloride 101 mmol/L (98-107); Glucose 84 mg/dL (74-99); Lipase 84 U/L (23-300); Non-African American GFR(CKD) >90 (>60 ml/min/1.73 sqM); Potassium 4.2 mmol/L (3.5-5.1); Sodium 135 mmol/L (137-145); Total Bilirubin 0.9 mg/dL (0.2-1.3); Total Protein 7.4 g/dL (6.3-8.2)
[2023-01-23 18:43] VITALS: BP 107/67; PULSE 63; TEMP 98.6
[2023-01-23 19:56] LABS: HCG,Quantitative Serum 85834.2 mIU/mL
== END 2023-01-23 18:47 | disposition home or self-care (01) ==
LOC: EC 15:16
DX: O21.0 Mild hyperemesis gravidarum (principal); O16.1 Unspecified maternal hypertension, first trimester; O99.341 Other mental disorders complicating pregnancy, first trimester; F17.290 Nicotine dependence, other tobacco product, uncomplicated; O99.321 Drug use complicating pregnancy, first trimester; F12.90 Cannabis use, unspecified, uncomplicated; Z86.59 Personal history of other mental and behavioral disorders; Z3A.01 Less than 8 weeks gestation of pregnancy
CPT/HCPCS: 36415; 76801; 80053; 81001; 82150; 83690; 84702; 85025; 96360; 99284

== ENCOUNTER → 2024-09-30 | Outpatient (CLI) | payer MEDICARE ==
--- NOTE | 2024-10-01 06:59 | MR ---
EXAMINATION TYPE: MR brain wo/w con DATE OF EXAM: 09/30/2024 COMPARISON: NONE HISTORY: Headaches, mostly front of head/face and ears TECHNIQUE: Multiplanar, multisequence images of the brain and brainstem is performed without and with IV contras t, utilizing 12 mL intravenous Gadobutrol . FINDINGS: Diffusion weighted images demonstrate no evidence of a recent infarct or other diffusion ab normality. There is no extra-axial fluid collection or significant white matter signal abnormality. The ventricular system and cisternal spaces are normal in size and appearance. The brain volume is age appropriate. Midline structures demonstrate normal morphology. The craniocervical junction appears within normal limits. Post contrast images demonstrate no abnormal enhancement. The dural venous sinuses appear pa tent. The visualized sinuses are clear and the globes are intact. IMPRESSION: No suspicious findings are seen to account for patient's clinical symptoms. [facility], , 10/01/2024 6:57 AM
== END | disposition home or self-care (01) ==
LOC: RADMRIMAIN 19:45
PROVIDERS: ATTEND Family Medicine
DX: R51.9 Headache, unspecified (principal)
CPT/HCPCS: 70553; A9585